=== PATIENT | male | born 1955 | race Caucasian/White ===

== ENCOUNTER 2019-05-15 22:59 | Emergency (ER) | payer OTHER ==
[~2019-05-15] VITALS: Ht 177.8 cm; Wt 99.8 kg
[2019-05-16 01:45] VITALS: BP 141/82
== END 2019-05-16 02:18 | disposition home or self-care (01) ==
LOC: ER 22:59 → EDBD 22:59 → ER 05-16 02:18
DX: S16.1XXA Strain of muscle, fascia and tendon at neck level, initial encounter (principal); S00.03XA Contusion of scalp, initial encounter; S30.0XXA Contusion of lower back and pelvis, initial encounter; E11.9 Type 2 diabetes mellitus without complications; Z86.73 Personal history of transient ischemic attack (TIA), and cerebral infarction without residual deficits; W19.XXXA Unspecified fall, initial encounter; Y93.89 Activity, other specified; Y99.8 Other external cause status; Y92.89 Other specified places as the place of occurrence of the external cause
CPT/HCPCS: 70450; 71250; 72125; 73502; 74176